=== PATIENT | male | born 1965 | race Caucasian/White ===

== ENCOUNTER → 2020-08-05 11:11 | Outpatient (BNVA) | payer OTHER, SELFPAY | PROVIDERS: PCP Internal Medicine Geriatric Medicine; Visit Provider Surgery | DX: R22.32 Localized swelling, mass and lump, left upper limb (principal) | CPT/HCPCS: 99212 ==

== ENCOUNTER 2020-10-18 12:01 | Emergency (ER) | payer OTHER, SELFPAY ==
[2020-10-18 12:03] VITALS: BP 133/79; PULSE 89; RESP 18; TEMP 37; O2SAT 98; BMI 25.7
--- NOTE | 2020-10-18 12:17 | ED_ITS ---
HPI - General Adult General Chief complaint: General Medical Stated complaint: flu like Time Seen by Provider: 10/18/20 12:13 Related Data Home Medications Medication Instructions Recorded Confirmed aspirin 81 mg tablet,delayed 81 mg PO DAILY 07/08/20 release atorvastatin 20 mg tablet 20 mg PO DAILY 07/08/20 metoprolol succinate 25 mg 25 mg PO DAILY 07/08/20 tablet,extended release 24 hr sucralfate 1 gram tablet 0 g PO 07/08/20 Previous Rx's Medication Instructions Recorded naproxen 500 mg tablet 500 mg PO BID PRN #30 tab 07/08/20 Allergies Allergy/AdvReac Type Severity Reaction Status Date / Time No Known Allergies Allergy Verified 10/18/20 12:03 [No Known Allergies*] [facility] Past Medical History Medical History (Updated 10/18/20 @ 12:18 by LAUREL Harrison) Hyperlipidemia Hypertension Subcutaneous mass Surgical History History of appendectomy History of hernia repair History of left knee surgery Social History Social History Alcohol intake: never Smoking Status: Never smoker Advance Directives: No Advance Directives Information Provided: No Physical Exam Vital Signs: Vital Signs: Last Vital Signs Temp 98.6 F 10/18/20 12:03 Pulse 89 10/18/20 12:03 Resp 18 10/18/20 12:03 BP 133/79 10/18/20 12:03 Pulse Ox 98 10/18/20 12:03 Body Mass Index 25.7 Discharge Plan Discharge Clinical Impression: Acute viral syndrome Patient Disposition: Home, Self-Care Instructions: Viral Syndrome (ED), COVID-19 (Coronavirus Disease 2019) (ED) Additional Instructions: You were tested for COVID-19 today. We will call you with the results. Your exam & oxygen levels were normal. Rest. Drink plenty of fluids. Do not go out in public for the next 14 days. Take over the counter cold/flu medications as needed for your symptoms. Take Tylenol and/or Motrin as needed for fevers and body aches. Follow up with your doctor this week. If you develop shortness of breath, difficulty breathing or any other concerning symptom come back to the ER for further evaluation. Prescriptions: No Action naproxen 500 mg tablet 500 mg PO BID PRN (Reason: pain) Qty: 30 RF: 0 Print Language: Uzbek
[2020-10-18 13:10] LABS: Influenza A PCR NEGATIVE (Negative); Influenza B PCR NEGATIVE (Negative); Resp Syncy Virus RNA Qual PCR NEGATIVE (Negative); SARS COV2 PCR INHOUSE POSITIVE (Negative)
== END 2020-10-18 12:30 | disposition home or self-care (01) ==
PROVIDERS: Emergency Provider Emergency Medicine
DX: U07.1 COVID-19 (principal); I10 Essential (primary) hypertension; Z79.899 Other long term (current) drug therapy
CPT/HCPCS: 0241U; 36415; 99283

== ENCOUNTER 2021-08-07 13:23 | Emergency (ER) | payer OTHER, SELFPAY ==
[2021-08-07 14:19] VITALS: BP 150/82; PULSE 83; RESP 16; TEMP 36.2; O2SAT 97; BMI 27.8
--- NOTE | 2021-08-07 14:19 | ED_ITS ---
HPI - URI/Sore Throat General Chief Complaint: Upper Respiratory Symptoms Stated Complaint: ?sore throat Time Seen by Provider: 08/07/21 14:16 Source: patient Mode of arrival: ambulatory Limitations: no limitations History of Present Illness MD elicited complaint: sore throat Onset (ago): day(s) (4) Consistency: constant Severity: moderate Description of mucous: clear Able to tolerate fluids by mouth: Yes Exacerbating factors: swallowing Relieving factors: nothing Context: sick contacts (son has strep throat) Associated symptoms: denies other symptoms Treatments prior to arrival: none Related Data Home Medications Medication Instructions Recorded Confirmed aspirin 81 mg tablet,delayed 81 mg PO DAILY 07/08/20 release atorvastatin 20 mg tablet 20 mg PO DAILY 07/08/20 metoprolol succinate 25 mg 25 mg PO DAILY 07/08/20 tablet,extended release 24 hr sucralfate 1 gram tablet 0 g PO 07/08/20 Previous Rx's Medication Instructions Recorded naproxen 500 mg tablet 500 mg PO BID PRN #30 tab 07/08/20 amoxicillin 500 mg capsule 500 mg PO BID 10 Days #20 cap 08/07/21 Allergies Allergy/AdvReac Type Severity Reaction Status Date / Time No Known Allergies Allergy Verified 10/18/20 12:03 [No Known Allergies*] Review of Systems Review of Systems: Constitutional : No Fever, No Chills ENT/Mouth : pos sore throat, No Rhinorrhea Eyes: No Eye Pain, No Swelling, No Redness Cardiovascular : No Chest Pain, No SOB Respiratory : No Cough, No Sputum Gastrointestinal : No Nausea, No Vomiting Musculoskeletal : No joint pain, No Myalgias, No Joint Swelling Skin : No Skin Lesions, No rash Neuro : No Weakness, No Numbness, No Dizziness, No Headache PMFSH Past Medical History Attestation statement: The following information was validated with the patient. Medical History Hyperlipidemia Hypertension Subcutaneous mass Surgical History History of appendectomy History of hernia repair History of left knee surgery Social History Social History (Updated 08/07/21 @ 14:23 by Nathalia Ramirez DO) Alcohol intake: never Patient Tobacco Use Status: Never used Tobacco Advance Directives: No Advance Directives Information Provided: No Physical Exam Vital Signs: Vital Signs: Last Vital Signs Temp 97.2 F 08/07/21 14:19 Pulse 83 08/07/21 14:19 Resp 16 08/07/21 14:19 BP 150/82 H 08/07/21 14:19 Pulse Ox 97 08/07/21 14:19 Body Mass Index 27.8 Appearance: Alert. Oriented X3. No acute distress. Eyes: Pupils equal, round and reactive to light. ENT: Pharynx moderate generalized erythema no exudates uvula midline, no drooling handling secretions Neck: Normal inspection. Neck supple. CVS: Normal heart rate and rhythm. Pulses normal. Respiratory: No respiratory distress. Breath sounds normal. Abdomen: Soft and non-tender. Skin: Skin warm and dry. Normal skin color. Normal skin turgor. Extremities: No lower extremity edema. Neuro: Oriented X 3. No motor deficit. No sensory deficit. MDM - URI/Sore Throat MDM Narrative Medical decision making narrative: 55 yo male not toxic here with sore throat x 4 days - no signs of deeper space infection, uvula is midline - no TICKET MARKER, will obtain COVID and strep swab, his son has strep throat. Lab Data Labs: Lab Results 08/07/21 08/07/21 Range/Units 14:20 14:20 COVID-19 (KAY) Negative (Negative) COVID-19 Clin Com See Note S. pyogenes GrpA BARBARA Negative (Negative) Discharge Plan Discharge Clinical Impression: Pharyngitis Qualifiers: Pharyngitis/tonsillitis etiology: unspecified etiology Qualified Code(s): J02.9 - Acute pharyngitis, unspecified Patient Disposition: Home, Self-Care Instructions: Pharyngitis (ED) Additional Instructions: return to ED for any worsening symptoms or concerns COVID negative Prescriptions: New amoxicillin 500 mg capsule 500 mg PO BID 10 Days Qty: 20 RF: 0 No Action naproxen 500 mg tablet 500 mg PO BID PRN (Reason: pain) Qty: 30 RF: 0 Stand Alone Forms: Work/School Release Print Language: Azeri
[2021-08-07 14:45] LABS: COVID-19 Test Negative (Negative); IDNOW Serial# 9DD0AD1C; Strep A Nucleic Acid Negative (Negative)
== END 2021-08-07 15:06 | disposition home or self-care (01) ==
PROVIDERS: Emergency Provider Emergency Medicine
DX: J02.9 Acute pharyngitis, unspecified (principal); I10 Essential (primary) hypertension; E78.5 Hyperlipidemia, unspecified; Z20.822 Contact with and (suspected) exposure to COVID-19
CPT/HCPCS: 36415; 87635; 87651; 99283

== ENCOUNTER 2021-09-26 11:53 | Emergency (ER) | payer OTHER, SELFPAY ==
[2021-09-26 13:50] VITALS: BP 154/87; PULSE 75; RESP 18; TEMP 36.6; O2SAT 98; BMI 27.8
[2021-09-26 17:01] LABS: Basophils Percent Auto 0.4 % (0-2); Eosinophils Absolute Auto 0.1 X10*3/uL (0.0-0.4); Hematocrit 47.6 % (42.0-52.0); Hemoglobin 15.2 g/dl (14.0-18.0); Imm Gran Abs Auto 0.02 X10*3/uL (0.00-0.03); Imm Gran Pct Auto 0.4 % (0.0-0.4); Lymphocytes Percent Auto 35.3 % (20-40); MANUAL DIFF FLAG SCAN; Mean Corpuscular HGB Conc 31.9 g/dl (31.0-36.0); Mean Corpuscular Hemoglobin 26.6 pg (27.0-33.0); Mean Corpuscular Volume 83.4 fL (80.0-98.0); Mean Platelet Volume 11.1 fL (9.4-12.4); Monocytes Absolute Auto 0.4 X10*3/uL (0.1-1.2); Monocytes Percent Auto 7.1 % (2-11); Neutrophils Absolute Auto 3.1 x10*3/uL (2.0-8.3); Neutrophils Percent Auto 54.8 % (45-73); Platelet Count 196 X10*3/uL (160-400); Red Blood Count 5.71 X10*6/uL (4.60-5.80); Red Cell Distribution Width 14.5 % (11.0-16.0); SCAN SMEAR FLAG 1; White Blood Count 5.6 X10*3/uL (4.8-10.8)
[2021-09-26 17:19] LABS: Alanine Aminotransferase 31 U/L (0-40); Albumin Level 4.4 g/dL (3.5-5.0); Alkaline Phosphatase 116 U/L (39-117); Anion Gap 12 (12-20); Aspartate Amino Transferase 26 U/L (5-37); Bilirubin Total 0.9 mg/dL (0.0-1.0); Blood Urea Nitrogen 12 mg/dL (9-16); Calcium 9.6 mg/dL (8.4-10.2); Carbon Dioxide 27 mmol/L (22-29); Chloride 106 mmol/L (96-108); Creatinine Clr Calc Pharmacy 85.8; Estimated Glomerular Filt Rate > 60; Glucose Random 86 mg/dL (60-115); Potassium 4.3 mmol/L (3.3-5.1); Sodium 141 mmol/L (135-145); Total Protein 7.2 g/dL (6.5-8.0)
[2021-09-26 17:22] LABS: SLIDE REVIEW VERIFIED
[2021-09-26 20:44] LABS: Appearance Urine CLEAR; Color Urine YELLOW; Glucose Urine UA NEG (NEG); Leukocyte Esterase Urine NEG (NEG); Nitrite Urine NEG (NEG); Specific Gravity - Urine >= 1.030 (1.005-1.025); UACC Culture Trigger NO; Urine Blood TRACE (NEG); Urine Ketones NEG (NEG); Urine Protein NEG (NEG-TRACE)
[2021-09-26 20:54] LABS: RBC Urine 0-2 /HPF (0); Squamous Epithelial Cell Urine TRACE /LPF; WBC Urine 0 /HPF (0-4)
--- NOTE | 2021-09-27 02:24 | ED.ABDPAIN ---
HPI - Abdominal Pain General Chief Complaint: Abdominal Pain Stated Complaint: Stomach Pain Diarrhea x 5 Days Time Seen by Provider: 09/27/21 02:24 Source: patient Mode of arrival: ambulatory History of Present Illness HPI narrative: 55-year-old male with history of hypertension and high cholesterol presents with complaints of watery diarrhea for 5 days without associated fever, chills, nausea, vomiting, recent travel and states that during that time he has been able to continue eating and drinking without difficulty but states he began developing some mid abdominal cramping. Patient states that his last episode of diarrhea was earlier in the day in that he has had no further episodes. Related Data Home Medications Medication Instructions Recorded Confirmed aspirin 81 mg tablet,delayed 81 mg PO DAILY 07/08/20 release atorvastatin 20 mg tablet 20 mg PO DAILY 07/08/20 metoprolol succinate 25 mg 25 mg PO DAILY 07/08/20 tablet,extended release 24 hr sucralfate 1 gram tablet 0 g PO 07/08/20 Previous Rx's Medication Instructions Recorded naproxen 500 mg tablet 500 mg PO BID PRN #30 tab 07/08/20 amoxicillin 500 mg capsule 500 mg PO BID 10 Days #20 cap 08/07/21 Allergies Allergy/AdvReac Type Severity Reaction Status Date / Time No Known Allergies Allergy Verified 09/26/21 13:50 [No Known Allergies*] Review of Systems Review of Systems Pertinent positives and negatives as stated in HPI 10 point review of systems is otherwise negative. Physical Exam Vital Signs: Vital Signs: Last Vital Signs Temp 97.8 F 09/26/21 13:50 Pulse 75 09/26/21 13:50 Resp 18 09/26/21 13:50 BP 154/87 H 09/26/21 13:50 Pulse Ox 98 09/26/21 13:50 BMI result Body Mass Index 27.8 VITAL SIGNS: Reviewed. GENERAL: Well developed, well nourished, in no acute distress. HEAD: Normocephalic/atraumatic EYES: PERRLA, EOMI LUNGS: Normal breath sounds. No adventitious sounds or accessory muscle use. SpO2<98> CARDIOVASCULAR: Regular rate and rhythm without noted murmurs, ABDOMEN: Soft, minimal tenderness that mid abdomen, no palpable ventral hernia appreciated, no rebound, non-distended with bowel sounds. SKIN: Inspection of the skin reveals no rashes NEUROLOGIC: Alert and oriented x 4. Strength and sensation to light touch were grossly intact x 4. Course Course Course Narrative: 55-year-old male with history and clinical presentation most consistent with gastroenteritis that has likely resolved as there is no evidence of infection and patient denies any recent antibiotic use or travel. He remains otherwise comfortable and review of remaining investigations is negative for acute findings to better explain patient's symptoms. All results and findings were discussed with the patient at bedside with a transactional attorney. MDM - Abdominal Pain Lab Data Result diagrams: 09/26/21 16:49 09/26/21 16:49 Labs: Lab Results 09/26/21 09/26/21 09/26/21 Range/Units 16:49 16:49 20:37 WBC 5.6 (4.8-10.8) X10*3/uL RBC 5.71 (4.60-5.80) X10*6/uL Hgb 15.2 (14.0-18.0) g/dl Hct 47.6 (42.0-52.0) % MCV 83.4 (80.0-98.0) fL MCH 26.6 L (27.0-33.0) pg MCHC 31.9 (31.0-36.0) g/dl RDW 14.5 (11.0-16.0) % Plt Count 196 (160-400) X10*3/uL MPV 11.1 (9.4-12.4) fL Immature Gran % (Auto) 0.4 (0.0-0.4) % Neut % (Auto) 54.8 (45-73) % Lymph % (Auto) 35.3 (20-40) % [place] % (Auto) 7.1 (2-11) % Eos % (Auto) 2.0 (0-4) % Baso % (Auto) 0.4 (0-2) % Lymph # (Auto) 2.0 (1.2-4.9) X10*3/uL [place] # (Auto) 0.4 (0.1-1.2) X10*3/uL Eos # (Auto) 0.1 (0.0-0.4) X10*3/uL Baso # (Auto) 0.0 (0.0-0.2) X10*3/uL Abs Immat Gran (auto) 0.02 (0.00-0.03) X10*3/uL Absolute Neuts (auto) 3.1 (2.0-8.3) x10*3/uL Absolute Nucleated RBC 0.000 (0.0-0.012) X10*3/uL Nucleated RBC % (auto) 0.0 (0.0-0.2) /100WBC Smear Tech's Comments VERIFIED Sodium 141 (135-145) mmol/L Potassium 4.3 (3.3-5.1) mmol/L Chloride 106 (96-108) mmol/L Carbon Dioxide 27 (22-29) mmol/L Anion Gap 12 (12-20) BUN 12 (9-16) mg/dL Creatinine 1.12 (0.5-1.4) mg/dL Estim Creat Clear Calc 85.8 Estimated GFR > 60 Random Glucose 86 (60-115) mg/dL Calcium 9.6 (8.4-10.2) mg/dL Total Bilirubin 0.9 (0.0-1.0) mg/dL AST 26 (5-37) U/L ALT 31 (0-40) U/L Alkaline Phosphatase 116 (39-117) U/L Total Protein 7.2 (6.5-8.0) g/dL Albumin 4.4 (3.5-5.0) g/dL Lipase 10 (8-78) U/L Urine Color YELLOW Urine Appearance CLEAR Urine pH 6.0 (5.0-8.0) Ur Specific [place] >= 1.030 H (1.005-1.025) Urine Protein NEG (NEG-TRACE) MG/DL Urine Glucose (UA) NEG (NEG) MG/DL Urine Ketones NEG (NEG) MG/DL Urine Blood TRACE (NEG) Urine Nitrite NEG (NEG) Ur Leukocyte Esterase NEG (NEG) Urine RBC 0-2 (0) /HPF Urine WBC 0 (0-4) /HPF Ur Squamous Epith Cells TRACE /LPF Urine Bacteria NONE /LPF COVID-19 (KAY) (Negative) COVID-19 Clin Com 09/27/21 Range/Units 02:21 WBC (4.8-10.8) X10*3/uL RBC (4.60-5.80) X10*6/uL Hgb (14.0-18.0) g/dl Hct (42.0-52.0) % MCV (80.0-98.0) fL MCH (27.0-33.0) pg MCHC (31.0-36.0) g/dl RDW (11.0-16.0) % Plt Count (160-400) X10*3/uL MPV (9.4-12.4) fL Immature Gran % (Auto) (0.0-0.4) % Neut % (Auto) (45-73) % Lymph % (Auto) (20-40) % [place] % (Auto) (2-11) % Eos % (Auto) (0-4) % Baso % (Auto) (0-2) % Lymph # (Auto) (1.2-4.9) X10*3/uL [place] # (Auto) (0.1-1.2) X10*3/uL Eos # (Auto) (0.0-0.4) X10*3/uL Baso # (Auto) (0.0-0.2) X10*3/uL Abs Immat Gran (auto) (0.00-0.03) X10*3/uL Absolute Neuts (auto) (2.0-8.3) x10*3/uL Absolute Nucleated RBC (0.0-0.012) X10*3/uL Nucleated RBC % (auto) (0.0-0.2) /100WBC Smear Tech's Comments Sodium (135-145) mmol/L Potassium (3.3-5.1) mmol/L Chloride (96-108) mmol/L Carbon Dioxide (22-29) mmol/L Anion Gap (12-20) BUN (9-16) mg/dL Creatinine (0.5-1.4) mg/dL Estim Creat Clear Calc Estimated GFR Random Glucose (60-115) mg/dL Calcium (8.4-10.2) mg/dL Total Bilirubin (0.0-1.0) mg/dL AST (5-37) U/L ALT (0-40) U/L Alkaline Phosphatase (39-117) U/L Total Protein (6.5-8.0) g/dL Albumin (3.5-5.0) g/dL Lipase (8-78) U/L Urine Color Urine Appearance Urine pH (5.0-8.0) Ur Specific [place] (1.005-1.025) Urine Protein (NEG-TRACE) MG/DL Urine Glucose (UA) (NEG) MG/DL Urine Ketones (NEG) MG/DL Urine Blood (NEG) Urine Nitrite (NEG) Ur Leukocyte Esterase (NEG) Urine RBC (0) /HPF Urine WBC (0-4) /HPF Ur Squamous Epith Cells /LPF Urine Bacteria /LPF COVID-19 (KAY) Negative (Negative) COVID-19 Clin Com See Note Discharge Plan Discharge Clinical Impression: Gastroenteritis, Food poisoning Patient Disposition: Home, Self-Care Instructions: Gastroenteritis (ED), Acute Diarrhea (ED), Food Poisoning (ED) Additional Instructions: 1. Reanude todos los medicamentos caseros seg?n lo prescrito. 2. Recomiende el uso de alimentos que reafirmen nidia heces. 3. Contin?e bebiendo belen agua. 4. Jaime un seguimiento con marquez proveedor de atenci?n primaria en los pr?ximos 1 a 2 d?as para bailey reevaluaci?n y un manejo ambulatorio adicional. Regrese a la isa de emergencias por un empeoramiento alice de los s?ntomas. Prescriptions: No Action amoxicillin 500 mg capsule 500 mg PO BID 10 Days Qty: 20 RF: 0 naproxen 500 mg tablet 500 mg PO BID PRN (Reason: pain) Qty: 30 RF: 0 Referrals: Name,MD Gerry [Primary Care Provider] - 2 days Print Language: Japanese [facility] Past Medical History Source: nursing notes reviewed Medical History Hyperlipidemia Hypertension Subcutaneous mass Surgical History History of appendectomy History of hernia repair History of left knee surgery Social History Social History Alcohol intake: never Patient Tobacco Use Status: Never used Tobacco Use of substances other than those prescribed or required for medical reasons: No Advance Directives: No Advance Directives Information Provided: Yes
--- NOTE | 2021-09-27 02:31 | PC.NURSE ---
pt a&o, no sob or chest pain. pt is resting in bed no sign of distress. labs and covid collected and sent. Awaiting for disposition
[2021-09-27 02:43] LABS: COVID-19 Test Negative (Negative); IDNOW Serial# 9DD0AD1C
[2021-09-27 02:44] LABS: Lipase 10 U/L (8-78)
== END 2021-09-27 03:55 | disposition home or self-care (01) ==
PROVIDERS: Emergency Provider Student in an Organized Health Care Education/Training Program; PCP Internal Medicine Geriatric Medicine
DX: A05.9 Bacterial foodborne intoxication, unspecified (principal); I10 Essential (primary) hypertension; Z20.822 Contact with and (suspected) exposure to COVID-19
CPT/HCPCS: 36415; 80053; 81001; 83690; 85025; 87635; 99283; 99284

== ENCOUNTER 2022-02-15 07:09 | Emergency (ER) | payer OTHER, SELFPAY ==
[2022-02-15 07:25] VITALS: BP 160/88; PULSE 81; RESP 18; TEMP 36.4; O2SAT 96; BMI 27.8
[2022-02-15 07:50] LABS: IDNOW Serial# 08D9AD1C; Strep A Nucleic Acid Negative (Negative)
[2022-02-15 07:52] LABS: COVID-19 Test Positive (Negative)
[2022-02-15 08:02] LABS: IDNOW Serial# 16C4AD1C; Influenza A Negative (Negative); Influenza B2 Negative (Negative)
--- NOTE | 2022-02-15 09:06 | ED.GENADULT ---
HPI - General Adult General Chief complaint: General Medical Stated complaint: headache,sore throat Time Seen by Provider: 02/15/22 09:01 Source: patient Mode of arrival: ambulatory Limitations: no limitations History of Present Illness HPI narrative: 56-year-old male with a past medical history of hypertension and hyperlipidemia presents for 2 days upper respiratory symptoms. Patient has had sore throat and headache. Patient can eat and drink, he can swallow, no muffled voice, no drooling. Patient's headache started gradually yesterday, he took Tylenol and it went away. Patient's headache started gradually again today, and is now worsening. Patient has had no neck pain, no nausea, no visual changes, no gait disturbance, no fevers, no stiff neck. Denies vomiting, diarrhea, body aches, ear pain, cough Patient is vaccinated for COVID, and boosted Related Data Home Medications Medication Instructions Recorded Confirmed aspirin 81 mg tablet,delayed 81 mg PO DAILY 07/08/20 release atorvastatin 20 mg tablet 20 mg PO DAILY 07/08/20 metoprolol succinate 25 mg 25 mg PO DAILY 07/08/20 tablet,extended release 24 hr sucralfate 1 gram tablet 0 g PO 07/08/20 Previous Rx's Medication Instructions Recorded naproxen 500 mg tablet 500 mg PO BID PRN #30 tab 07/08/20 amoxicillin 500 mg capsule 500 mg PO BID 10 Days #20 cap 08/07/21 ibuprofen 800 mg tablet 800 mg PO Q8H #30 tab 02/15/22 Allergies Allergy/AdvReac Type Severity Reaction Status Date / Time No Known Allergies Allergy Verified 09/26/21 13:50 [No Known Allergies*] Review of Systems Constitutional: Constitutional: Denies body ache(s), Denies chills, Denies fatigue, Denies fever(s), Reports headache(s), Denies malaise and Denies weakness Eyes: Eyes: Denies diplopia ENT: Denies vertigo, Denies dizziness, Denies otalgia, Reports headache(s), Denies mouth pain, Denies post nasal drip, Denies sinus pain, Denies sinus pressure, Reports sore throat and Denies throat swelling Cardiovascular: Cardiovascular: Denies chest pain, Denies syncope, Denies leg edema, Denies lightheadedness, Denies Loss of Consciousness, Denies palpitations and Denies dyspnea Respiratory: Respiratory: Denies chest congestion, Denies cough and Denies dyspnea Gastrointestinal: Gastrointestinal: Denies abdominal pain, Denies hematochezia, Denies constipation, Denies diarrhea and Denies vomiting Musculoskeletal: Musculoskeletal: Reports no additional musculoskeletal complaints Neurologic: Denies confusion, Denies vertigo, Denies dizziness, Denies syncope, Reports headache(s) and Denies weakness Psychiatric: Psychiatric: Denies anxiety, Denies confusion and Denies depression Endocrine: Endocrine: Denies fatigue and Denies palpitations Allergic/Immunologic: Allergic/Immunologic: Denies throat swelling PMFSH Past Medical History Medical History Hyperlipidemia Hypertension Subcutaneous mass Surgical History History of appendectomy History of hernia repair History of left knee surgery Social History Social History Alcohol intake: never Patient Tobacco Use Status: Never used Tobacco Advance Directives: No Advance Directives Information Provided: No Physical Exam ED Vital Signs: Vital Signs - 24 hr 02/15/22 07:25 Temperature 97.6 F Pulse Rate 81 Respiratory Rate 18 Blood Pressure 160/88 H Pulse Oximetry 96 BMI result Body Mass Index 27.8 Const General: No confusion Nutritional Appearance: well nourished Orientation/consciousness: No confusion Limitations: no limitations HENMT Head: Yes normal to inspection, Yes normocephalic and Yes atraumatic Ears: hearing grossly normal bilaterally, external ears normal, TM's normal bilaterally and EAC's normal General nose exam: Normal external nose present Face and sinus: Yes normal facial exam and Yes sinuses nontender Mouth: Normal oral and palatal mucosa present Throat: Yes postnasal drainage Eyes Conjunctivae: conjunctivae normal Pupils: Equal, round and reactive pupils present EOM: EOMs intact bilaterally Neck Neck: Yes full ROM, Yes no lymphadenopathy and Yes supple Resp Effort & Inspection: normal respiratory effort and able to speak in complete sentences Auscultation: clear to auscultation bilaterally, no crackles, no rales, no rhonchi and no wheezes Cardio Rate: regular rate Rhythm: regular rhythm Heart sounds: S1 normal heart sound present and S2 normal heart sound present GI Inspection: Yes normal to inspection Palpation (GI): Soft to palpation, nontender, no guarding and not rigid Percussion: Yes normal to percussion Auscultation: normal bowel sounds Skin General skin exam: no rashes or lesions noted Neuro General: No confusion Cranial nerves: Yes Equal, round and reactive pupils present Extrem General: Yes normal to inspection and Yes full ROM Psych Appearance: grossly normal Affect: normal affect Attitude: cooperative Thought process: Normal thought process present Course Course Course Narrative: For discharge home Counseled patient to quarantine at home for 5 days, stay in his room, wash hands, where mass, take all males in his room, and patient may go in public with a mask for the following 5 days if symptoms are resolving Gave return precautions of sudden worsening headache, vomiting, visual changes, gait disturbance, neck pain, chest pain, shortness of breath. Patient does not currently have a cough Prescribed ibuprofen, fluids, Tylenol, rest Patient verbalized agreement understanding of the plan, questions were answered, patient is stable for discharge home Medical Decision Making Lab Data Labs: Lab Results 02/15/22 02/15/22 02/15/22 Range/Units 07:30 07:31 07:31 COVID-19 (KAY) Positive A (Negative) COVID-19 Clin Com See Note Influenza Type A (BARBARA) Negative (Negative) Influenza Type B (BARBARA) Negative (Negative) Influenza A & B Note See Note S. pyogenes GrpA BARBARA Negative (Negative) Discharge Plan Discharge Clinical Impression: COVID-19 Patient Disposition: Home, Self-Care Instructions: COVID-19 (Coronavirus Disease 2019) (ED) Additional Instructions: Please stay home in quarantine for the next 5 days. If you are feeling better you may go in public and go back to work in 5 days from now. For the following 5 days you must wear mask when you are out in public. Please drink plenty of fluids, take the ibuprofen as I have prescribed, you may also take Tylenol. Rest. If your headache gets suddenly severe, if you have vomiting with her headache or visual changes, if you have chest pain or shortness of breath, please return to the emergency room Prescriptions: New ibuprofen 800 mg tablet 800 mg PO Q8H Qty: 30 0RF No Action amoxicillin 500 mg capsule 500 mg PO BID 10 Days Qty: 20 0RF naproxen 500 mg tablet 500 mg PO BID PRN (Reason: pain) Qty: 30 0RF
== END 2022-02-15 10:00 | disposition home or self-care (01) ==
PROVIDERS: Emergency Provider Emergency Medicine; PCP Internal Medicine Geriatric Medicine
DX: U07.1 COVID-19 (principal); R51.9 Headache, unspecified; I10 Essential (primary) hypertension; E78.5 Hyperlipidemia, unspecified; Z79.02 Long term (current) use of antithrombotics/antiplatelets; Z79.82 Long term (current) use of aspirin
CPT/HCPCS: 87502; 87635; 87651; 99283

== ENCOUNTER 2022-09-26 16:35 | Emergency (ER) | payer OTHER, SELFPAY ==
--- NOTE | ~2022-09-26 | CT_ITS ---
EXAMINATION: CT head/brain wo IV con, CT cervical spine wo IV con CLINICAL INFORMATION: Headache, right-sided neck pain COMPARISON: None. TECHNIQUE: Contiguous axial imaging was performed from the skull base to vertex without intravenous contrast. Sagittal and coronal reformatted images were obtained. This CT examination was performed using dose optimization techniques as appropriate, variously including the following: * Automated exposure control * Adjustment of mA and/or kV according to patient size (this includes techniques or standardized protocols for targeted exams where dose is matched to indication/reason for exam; i.e. extremities or head) Use of iterative reconstruction technique DLP: 1299 mGy-cm FINDINGS: Head: No acute osseous or soft tissue abnormality. The mastoid air cells and visualized portions of the paranasal sinuses are well aerated. There is no evidence of acute intracranial hemorrhage or territorial infarction. No abnormal mass effect or midline shift is seen. Goodrich to white matter differentiation is well preserved. No extra-axial fluid collections are identified. No hydrocephalus. No significant volume loss. There is no abnormal attenuation within the brain parenchyma. Cervical spine: There is no evidence of acute cervical spine fracture. Vertebral bodies remain normal in height. Alignment is maintained. Mild degenerative changes of the cervical spine. No high-grade osseous spinal canal or neural foraminal narrowing. No pre- or paravertebral soft tissue abnormality is identified. Visualized portions of the lung apices are unremarkable. The thyroid gland is unremarkable. CT/CT cervical spine wo IV con IMPRESSION: 1. No acute intracranial abnormality. 2. No cervical spine fracture or traumatic malalignment.
--- NOTE | ~2022-09-26 | CT_ITS ---
EXAMINATION: CT head/brain wo IV con, CT cervical spine wo IV con CLINICAL INFORMATION: Headache, right-sided neck pain COMPARISON: None. TECHNIQUE: Contiguous axial imaging was performed from the skull base to vertex without intravenous contrast. Sagittal and coronal reformatted images were obtained. This CT examination was performed using dose optimization techniques as appropriate, variously including the following: * Automated exposure control * Adjustment of mA and/or kV according to patient size (this includes techniques or standardized protocols for targeted exams where dose is matched to indication/reason for exam; i.e. extremities or head) Use of iterative reconstruction technique DLP: 1299 mGy-cm FINDINGS: Head: No acute osseous or soft tissue abnormality. The mastoid air cells and visualized portions of the paranasal sinuses are well aerated. There is no evidence of acute intracranial hemorrhage or territorial infarction. No abnormal mass effect or midline shift is seen. Goodrich to white matter differentiation is well preserved. No extra-axial fluid collections are identified. No hydrocephalus. No significant volume loss. There is no abnormal attenuation within the brain parenchyma. Cervical spine: There is no evidence of acute cervical spine fracture. Vertebral bodies remain normal in height. Alignment is maintained. Mild degenerative changes of the cervical spine. No high-grade osseous spinal canal or neural foraminal narrowing. No pre- or paravertebral soft tissue abnormality is identified. Visualized portions of the lung apices are unremarkable. The thyroid gland is unremarkable. CT/CT head/brain wo IV con IMPRESSION: 1. No acute intracranial abnormality. 2. No cervical spine fracture or traumatic malalignment.
[2022-09-26 18:36] VITALS: BP 161/92; PULSE 72; RESP 18; TEMP 36.6; O2SAT 97; BMI 27.8
--- NOTE | 2022-09-26 18:38 | ED_ITS ---
HPI - Neck Pain/Injury General Chief Complaint: Neck Pain/Injury <LAUREL Cheney - Last Filed: 09/26/22 18:39> Stated Complaint: Neck pain <LAUREL Cheney - Last Filed: 09/26/22 18:39> Time Seen by Provider: 09/26/22 20:17 <LAUREL Cheney - Last Filed: 09/26/22 18:39> Source: patient <Moe Gray MD - Last Filed: 09/26/22 22:00> Mode of arrival: ambulatory <Moe Gray MD - Last Filed: 09/26/22 22:00> History of Present Illness HPI Narrative: Patient history of arthritis hypertension noticed for last few days pain on the right side of the neck with tingling sensation on the right shoulder area on hyperextension of the neck no history of injuries no hand weakness patient does have a arthritis of knees <Moe Gray MD - Last Filed: 09/26/22 22:00> Related Data Home Medications: Home Medications Medication Instructions Recorded Confirmed aspirin 81 mg tablet,delayed 81 mg PO DAILY 07/08/20 release atorvastatin 20 mg tablet 20 mg PO DAILY 07/08/20 metoprolol succinate 25 mg 25 mg PO DAILY 07/08/20 tablet,extended release 24 hr sucralfate 1 gram tablet 0 g PO 07/08/20 Previous Rx's Medication Instructions Recorded naproxen 500 mg tablet 500 mg PO BID PRN pain #30 tabs 07/08/20 amoxicillin 500 mg capsule 500 mg PO BID 10 days #20 caps 08/07/21 ibuprofen 800 mg tablet 800 mg PO Q8H #30 tabs 02/15/22 cyclobenzaprine 10 mg tablet 10 mg PO Q8H #20 tabs 09/26/22 tramadol 50 mg tablet 50 mg PO Q6H PRN pain #20 tabs 09/26/22 <LAUREL Cheney - Last Filed: 09/26/22 18:39> Allergies/Adverse Reactions: Allergies Allergy/AdvReac Type Severity Reaction Status Date / Time No Known Allergies Allergy Verified 09/26/22 18:42 [No Known Allergies*] <LAUREL Cheney Last Filed: 09/26/22 18:39> Review of Systems Review of Systems: Yes all other systems are reviewed and are negative <Moe Gray MD - Last Filed: 09/26/22 22:00> [facility] Past Medical History Medical History: Medical History Hyperlipidemia Hypertension Subcutaneous mass <LAUREL Cheney - Last Filed: 09/26/22 18:39> Surgical History: Surgical History History of appendectomy History of hernia repair History of left knee surgery <LAUREL Cheney - Last Filed: 09/26/22 18:39> Social History Social History: Social History Alcohol intake: never Patient Tobacco Use Status: Never used Tobacco Advance Directives: No Advance Directives Information Provided: No <LAUREL Cheney - Last Filed: 09/26/22 18:39> Physical Exam Vital Signs: Vital Signs: Last Vital Signs Temp 98.5 F 09/26/22 20:07 Pulse 75 09/26/22 20:07 Resp 19 09/26/22 20:07 BP 143/94 H 09/26/22 20:07 Pulse Ox 98 09/26/22 20:07 O2 Del Method 09/26/22 20:07 BMI result Body Mass Index 27.8 <LAUREL Cheney - Last Filed: 09/26/22 18:39> Vital Signs: Last Vital Signs Temp 98.5 F 09/26/22 20:07 Pulse 75 09/26/22 20:07 Resp 19 09/26/22 20:07 BP 143/94 H 09/26/22 20:07 Pulse Ox 98 09/26/22 20:07 O2 Del Method 09/26/22 20:07 BMI result Body Mass Index 27.8 <Moe Gray MD - Last Filed: 09/26/22 22:00> Appearance: Alert. Oriented X3. No acute distress. ENT: Pharynx normal. Oral Mucosa moist Neck: Normal inspection. Neck supple. No midline tenderness CVS: Normal heart rate and rhythm. Pulses normal. Respiratory: No respiratory distress. Equal air entry bilateral, no wheezing/rales/rhonchi Abdomen: Soft and nontender. Bowel sounds are present, no mass palpable, no CVA tenderness Skin: Skin warm and dry. Normal skin color. Normal skin turgor. Extremities: No lower extremity edema. No calf tenderness Neuro: Oriented X 3. No motor deficit. No sensory deficit.No cerebellar signs , cranial nerves II-XII intact <Moe Gray MD - Last Filed: 09/26/22 22:00> Course Course Course Narrative: 1836 RME: This is a 56-year-old male presenting with neck pain status post looking to his right 9 days ago since then he has been experiencing pain that travels up into his head and travels down into his right arm. He tells me the pain is excruciating. It is not going away. He is having his son massage the area with little to no relief. Denies vision changes, headache, vision changes, weakness, dizziness. Denies trauma to the area. Physical exam benign. NIH stroke scale 0. Plan at this time is to obtain CT of cervical spine will order Toradol and Lidoderm patch. <LAUREL Cheney - Last Filed: 09/26/22 18:39> Medications Administered Discontinued Medications Generic Name Dose Route Start Last Admin Trade Name Freq PRN Reason Stop Dose Admin Ketorolac Tromethamine 30 mg 09/26/22 18:37 09/26/22 20:13 Ketorolac Tromethamine 30 Mg/Ml Vial IM 09/26/22 18:38 30 mg ONCE ONE Administration Lidocaine 1 patch 09/26/22 18:37 09/26/22 20:12 Lidocaine 4 % Patch Adh..Patch TRANSDERMA 09/26/22 18:38 1 patch ONCE ONE Administration Protocol <LAUREL Cheney - Last Filed: 09/26/22 18:39> Medications Administered Discontinued Medications Generic Name Dose Route Start Last Admin Trade Name Freq PRN Reason Stop Dose Admin Ketorolac Tromethamine 30 mg 09/26/22 18:37 09/26/22 20:13 Ketorolac Tromethamine 30 Mg/Ml Vial IM 09/26/22 18:38 30 mg ONCE ONE Administration Lidocaine 1 patch 09/26/22 18:37 09/26/22 20:12 Lidocaine 4 % Patch Adh..Patch TRANSDERMA 09/26/22 18:38 1 patch ONCE ONE Administration Protocol <Moe Gray MD - Last Filed: 09/26/22 22:00> Medical Decision Making Medical Decision Making [facility] Narrative: Patient with radiculopathy findings on hyperextension of the neck CT scan of the neck is negative dermatomal pattern is C5 C6 area on the right side. No focal deficit patient advised to follow-up with PCP for MRI further evaluation <Moe Gray MD - Last Filed: 09/26/22 22:00> Discharge Plan Discharge Clinical Impression: Cervical radiculopathy <LAUREL Cheney - Last Filed: 09/26/22 18:39> Patient Disposition: Home, Self-Care <LAUREL Cheney - Last Filed: 09/26/22 18:39> Instructions: Cervical Radiculopathy (ED) <LAUREL Cheney - Last Filed: 09/26/22 18:39> Additional Instructions: Take pain medication muscle relaxant as prescribed Follow-up with your PCP for evaluation including MRI The CT scan of the C-spine is negative <LAUREL Cheney - Last Filed: 09/26/22 18:39> Prescriptions: New cyclobenzaprine 10 mg tablet 10 mg PO Q8H Qty: 20 0RF tramadol 50 mg tablet 50 mg PO Q6H PRN (Reason: pain) Qty: 20 0RF No Action amoxicillin 500 mg capsule 500 mg PO BID 10 Days Qty: 20 0RF ibuprofen 800 mg tablet 800 mg PO Q8H Qty: 30 0RF naproxen 500 mg tablet 500 mg PO BID PRN (Reason: pain) Qty: 30 0RF <LAUREL Cheney - Last Filed: 09/26/22 18:39> Interventions: ED Discharge Assessment Last Done: 09/26/22 20:43 <LAUREL Cheney - Last Filed: 09/26/22 18:39> Discharge Date/Time: 09/26/22 20:44 <LAUREL Cheney Last Filed: 09/26/22 18:39> Print Language: Vincentian <LAUREL Cheney - Last Filed: 09/26/22 18:39>
[2022-09-26 20:07] VITALS: BP 143/94; PULSE 75; RESP 19; TEMP 36.9; O2SAT 98
[2022-09-26] MEDS: Lidocaine 4 % Patch ADH..PATCH 1 PATCH TRANSDERMA (20:12)
[2022-09-26] MEDS: Ketorolac Tromethamine 30 MG/ML VIAL IM (20:13)
== END 2022-09-26 20:44 | disposition home or self-care (01) ==
PROVIDERS: Emergency Provider Internal Medicine; PCP Internal Medicine Geriatric Medicine
DX: M54.12 Radiculopathy, cervical region (principal); R51.9 Headache, unspecified; M54.2 Cervicalgia; M25.511 Pain in right shoulder; Z79.899 Other long term (current) drug therapy
CPT/HCPCS: 70450; 72125; 96372; 99283; 99284; J1885

== ENCOUNTER 2023-05-30 10:57 | Outpatient (REF) | payer OTHER, SELFPAY ==
[2023-05-30 12:27] LABS: Anion Gap 12 (12-20); Blood Urea Nitrogen 15 mg/dL (9-16); Carbon Dioxide 27 mmol/L (22-29); Chloride 108 mmol/L (96-108); Estimated Glomerular Filt Rate > 60; Glucose Random 89 mg/dL (60-115); Potassium 4.3 mmol/L (3.3-5.1); Sodium 143 mmol/L (135-145)
== END 2023-05-30 10:58 | disposition home or self-care (01) ==
LOC: HO.HHCL 10:57
PROVIDERS: Visit Provider Internal Medicine Geriatric Medicine
DX: I10 Essential (primary) hypertension (principal); R73.03 Prediabetes
CPT/HCPCS: 36415; 80048

== ENCOUNTER 2023-12-26 09:13 | Outpatient (REF) | payer OTHER, SELFPAY ==
[2023-12-26 11:57] LABS: Estimated Average Glucose 123 mg/dL; Hemoglobin A1c % 5.9 % (<6.0)
[2023-12-26 12:21] LABS: Alanine Aminotransferase 54 U/L (0-40); Albumin Level 4.1 g/dL (3.5-5.0); Alkaline Phosphatase 109 U/L (39-117); Anion Gap 11 (12-20); Aspartate Amino Transferase 37 U/L (5-37); Blood Urea Nitrogen 14 mg/dL (9-16); Calcium 9.2 mg/dL (8.4-10.2); Carbon Dioxide 29 mmol/L (22-29); Chloride 107 mmol/L (96-108); Cholesterol 146 mg/dL (<200); Estimated Glomerular Filt Rate > 60; Glucose Random 101 mg/dL (60-115); HDL Cholesterol 36 mg/dL (>40); LDL Cholesterol Calculated 80 mg/dL (<100); Potassium 3.9 mmol/L (3.3-5.1); Sodium 143 mmol/L (135-145); Total Protein 7.2 g/dL (6.5-8.0); Triglycerides 153 mg/dL (<150)
[2023-12-26 12:46] LABS: Prostate Specific Antigen 0.37 ng/mL (<0.05-4.0)
[2023-12-27 07:15] LABS: HIV AB/AG Nonreactive (Nonreactive); HIV Num 1 0.08 S/CO (0.00-0.99); ~HepC Num1 0.12 S/CO (0.00-0.79); ~Hepatitis C Antibody Nonreactive (Nonreactive)
== END 2023-12-26 09:14 | disposition home or self-care (01) ==
LOC: HO.HHCL 09:13
PROVIDERS: Visit Provider Internal Medicine Geriatric Medicine
DX: Z00.00 Encounter for general adult medical examination without abnormal findings (principal); Z12.5 Encounter for screening for malignant neoplasm of prostate; Z11.4 Encounter for screening for human immunodeficiency virus [HIV]; Z11.59 Encounter for screening for other viral diseases; R73.03 Prediabetes; Z79.899 Other long term (current) drug therapy
CPT/HCPCS: 36415; 80053; 80061; 83036; 84153; 86803; 87389

== ENCOUNTER 2024-12-03 08:25 | Outpatient (REF) | payer OTHER, SELFPAY ==
--- OUTSIDE RECORDS SUMMARY | 2024-12-03 08:57 | XMS_ITS | Clinical Summary ---
Author Organization [facility] Address [id number] [place] [id number] Care Team Providers Care Improvement Manager Name Role Phone Name, Gerry POTTER Primary Care Provider [phone] Surgical History Surgery Date Site/Laterality Comments APPENDECTOMY PROCEDURE: HISTORICAL APPENDECTOMY OTHER SURGICAL HISTORY PROCEDURE: ---- OTHER ----; COMMENT: The patient describes a left foot nerve biopsy? HERNIA REPAIR PROCEDURE: HISTORICAL HERNIA REPAIR/ING; COMMENT: L side Family History Relation Name Status Comments Brother Alive HTN Father heart problems, mi Mother Alive DM, DJD, thyroi d problems, high cholesterol Son 1 Alive migraines Son 2 Alive Son 3 Alive Son 4 Alive Social History Tobacco Use Types Packs/Day Years Used Date Smoking Tobacco: Never Smokeless Tobacco: Never Alcohol Use Standard Drinks/Week Comments No 0 (1 standard drink = 0.6 oz pur e alcohol) Sex and Gender Information Value Date Recorded Sex Assigned at Not on file Legal Sex Male 12:37 PM EST Gender Identity Not on file Sexual Orientation Not on file Obstetrics History Plan of Treatment Health Maintenance Due Date Last Done Comments Hepatitis B Vaccines (1 of 3 - 19+ 3-dose series) 1984 Pneumococcal Vaccine: 50+ Years (1 of 1 - PCV) 2015 Zoster Vaccines (1 of 2) 2015 DTaP,Tdap,and Td Vaccines (2 - Td or Tdap) 04/06/2019 04/06/2009 COVID-19 Vaccine ( - 2023-2 5 season) 2024 Influenza Vaccine (#1) 2024 5, 07/14/2014, 06/06/2012 RSV Immunization Patients 60 + Years Old (1 - 1-dose 75+ series) 2040 HIB Vaccines Aged Out No longer eligi ble based on patient's age to complete this topic HPV Vaccines Aged Out No longer eligi ble based on patient's age to complete this topic Hepatitis A Vaccines Aged Out No long er eligible based on patient's age to complete this topic IPV Vaccines Aged Out No longer eligi ble based on patient's age to complete this topic MMR Vaccines Aged Out No longer eligi ble based on patient's age to complete this topic Meningococcal ACWY Vaccine Aged Out N o longer eligible based on patient's age to complete this topic Meningococcal B Vacine Aged Out No lo nger eligible based on patient's age to complete this topic Pneumococcal Vaccine: Pediatrics (0 to 5 Years) and At-Risk Patients (6 to 64 Years) Aged Out No longer eligible b ased on patient's age to complete this topic RSV Immunization Patients Under 20 months Aged Out No longer eligible b ased on patient's age to complete this topic Varicella Vaccines Aged Out No longer eligible based on patient's age to complete this topic Care Teams Improvement Manager Relationship Specialty Start Date End Date Name, MD Gerry [address] [place] [address] PCP - General 06/05/08
[2024-12-03 09:25] LABS: Alanine Aminotransferase 60 U/L (0-40); Albumin Level 4.2 g/dL (3.5-5.0); Alkaline Phosphatase 110 U/L (39-117); Anion Gap 10 (12-20); Aspartate Amino Transferase 35 U/L (5-37); Bilirubin Total 0.5 mg/dL (0.0-1.0); Blood Urea Nitrogen 15 mg/dL (9-16); Calcium 9.7 mg/dL (8.4-10.2); Carbon Dioxide 29 mmol/L (22-29); Chloride 108 mmol/L (96-108); Cholesterol 180 mg/dL (<200); Estimated Glomerular Filt Rate > 60; Glucose Random 105 mg/dL (60-115); HDL Cholesterol 34 mg/dL (>40); LDL Cholesterol Calculated 93 mg/dL (<100); Potassium 4.3 mmol/L (3.3-5.1); Sodium 143 mmol/L (135-145); Total Protein 7.5 g/dL (6.5-8.0); Triglycerides 267 mg/dL (<150)
== END 2024-12-03 08:26 | disposition home or self-care (01) ==
LOC: HO.LAB 08:25
PROVIDERS: PCP Internal Medicine Geriatric Medicine; Visit Provider Internal Medicine Geriatric Medicine
DX: I10 Essential (primary) hypertension (principal)
CPT/HCPCS: 36415; 80053; 80061